=== PATIENT | male | born 1975 | race Caucasian/White ===

== ENCOUNTER 2021-12-19 21:04 | Emergency (ER) | payer MEDICAID ==
[~2021-12-19] VITALS: Ht 175.3 cm; Wt 84.0 kg
[2021-12-19] MEDS ORDERED: IPRATROPIUM BROMIDE (0.02%) 0.5MG/2.5ML NEB HHN STA (21:48)
[2021-12-19] MEDS ORDERED: PREDNISONE 20MG TABLET PO STA (21:48)
[2021-12-19] MEDS: ALBUTEROL (0.083%) 2.5MG/3ML NEB HHN SCH ×3 (22:45→23:45)
[2021-12-20 00:31] VITALS: BP 123/81
[2021-12-20] MEDS ORDERED: P50 MT ×2 (00:48→02:31)
[2021-12-20] MEDS ORDERED: ALBU6.7H9 INH ×2 (00:48→02:31)
[2021-12-20] MEDS ORDERED: ATROV INH ×2 (00:49→02:31)
[2021-12-20] MEDS ORDERED: IBUP-2028 MT ×2 (00:49→02:31)
[2021-12-20] MEDS ORDERED: TOPUD PO ×2 (00:50→02:31)
== END 2021-12-20 01:10 | disposition home or self-care (01) ==
LOC: ER 21:04
DX: R07.89 Other chest pain (principal); R06.2 Wheezing; M54.89 Other dorsalgia; Z20.822 Contact with and (suspected) exposure to COVID-19; F12.90 Cannabis use, unspecified, uncomplicated; F17.210 Nicotine dependence, cigarettes, uncomplicated; Z71.6 Tobacco abuse counseling
CPT/HCPCS: 71045; 87426; 93005; 94640; 99285; 99406; J7512; Z7610

== ENCOUNTER 2021-12-20 01:49 | Emergency (ER) | payer MEDICAID ==
[~2021-12-20] VITALS: Ht 175.3 cm; Wt 84.0 kg
[~2021-12-20 01:49] MED LIST: ALBU6.7H9 INH; ATROV INH; IBUP-2028 MT; P50 MT; TOPUD PO
[2021-12-20 02:10] VITALS: BP 138/62
[2021-12-20] MEDS ORDERED: P50 MT (02:31)
[2021-12-20] MEDS ORDERED: ALBU6.7H9 INH (02:31)
[2021-12-20] MEDS ORDERED: IBUP-2028 MT (02:31)
[2021-12-20] MEDS ORDERED: ATROV INH (02:31)
[2021-12-20] MEDS ORDERED: TOPUD PO (02:31)
== END 2021-12-20 03:00 | disposition home or self-care (01) ==
LOC: ER 01:49
DX: Z76.0 Encounter for issue of repeat prescription (principal)
CPT/HCPCS: 99283

== ENCOUNTER 2022-01-13 08:05 | Emergency (ER) | payer MEDICAID ==
[~2022-01-13] VITALS: Ht 177.8 cm; Wt 82.0 kg
[2022-01-13 08:17] VITALS: BP 155/83
[2022-01-13] MEDS ORDERED: ALBUTEROL (0.083%) 2.5MG/3ML NEB HHN STA ×3 (08:35→10:23)
[2022-01-13] MEDS ORDERED: METHYLPREDNISOLONE SOD SUCC 125 MG/2 ML VIAL IV STA (08:35)
[2022-01-13] MEDS ORDERED: IPRATROPIUM BROMIDE (0.02%) 0.5MG/2.5ML NEB HHN STA ×3 (08:35→10:23)
[2022-01-13] MEDS ORDERED: PREDNISONE 20MG TABLET PO ONE (08:45)
[2022-01-13] MEDS ORDERED: ATROV INH (11:41)
[2022-01-13] MEDS ORDERED: ALBU6.7H9 INH (11:41)
[2022-01-13] MEDS ORDERED: P50 MT (11:41)
== END 2022-01-13 11:54 | disposition home or self-care (01) ==
LOC: ER 08:05
DX: R06.02 Shortness of breath (principal); F12.10 Cannabis abuse, uncomplicated; Z79.899 Other long term (current) drug therapy
CPT/HCPCS: 71045; 94640; 99284; J7512; Z7610

== ENCOUNTER 2022-01-24 15:54 | Emergency (ER) | payer SELFPAY ==
[~2022-01-24] VITALS: Ht 177.8 cm; Wt 82.0 kg
[2022-01-24] MEDS ORDERED: IPRATROPIUM BROMIDE (0.02%) 0.5MG/2.5ML NEB HHN STA ×2 (16:48→18:50)
[2022-01-24] MEDS ORDERED: PREDNISONE 20MG TABLET PO STA (16:48)
[2022-01-24] MEDS ORDERED: ALBUTEROL (0.083%) 2.5MG/3ML NEB HHN STA ×2 (16:48→18:50)
[2022-01-24] MEDS ORDERED: ALBU6.7H15 INH (19:45)
[2022-01-24] MEDS ORDERED: P50 MT (19:45)
[2022-01-24] MEDS ORDERED: AZIT500T8 MT (19:45)
[2022-01-24 21:00] VITALS: BP 136/84
== END 2022-01-24 21:30 | disposition home or self-care (01) ==
LOC: ER 15:54
DX: J44.1 Chronic obstructive pulmonary disease with (acute) exacerbation (principal); Z72.0 Tobacco use; F12.90 Cannabis use, unspecified, uncomplicated; Z79.51 Long term (current) use of inhaled steroids; Z79.899 Other long term (current) drug therapy
CPT/HCPCS: 71045; 94640; 99285; J7512; Z7610

== ENCOUNTER 2023-01-26 21:09 | Emergency (ER) | payer MEDICAID ==
[~2023-01-26] VITALS: Ht 180.3 cm; Wt 84.0 kg
[~2023-01-26 21:09] MED LIST changes: +ALBU6.7H15 INH; +ALBU6.7H3 INH; -ALBU6.7H9 INH; +AZIT500T8 MT
[2023-01-27] MEDS ORDERED: IPRATROPIUM BROMIDE (0.02%) 0.5MG/2.5ML NEB HHN STA (00:57)
[2023-01-27] MEDS ORDERED: ACETAMINOPHEN 325MG TABLET PO STA (00:57)
[2023-01-27] MEDS ORDERED: METHYLPREDNISOLONE SOD SUCC 125 MG/2 ML VIAL IM STA (00:57)
[2023-01-27] MEDS ORDERED: ALBUTEROL (0.083%) 2.5MG/3ML NEB HHN STA (00:57)
[2023-01-27] MEDS ORDERED: MAGNESIUM/ALUMINUM HYDROXIDE/SIMETHICONE 30ML UDC PO ONE (01:00)
[2023-01-27] MEDS ORDERED: FAMOTIDINE 20MG TABLET PO ONE (01:00)
[2023-01-27] MEDS ORDERED: P50 PO (04:01)
[2023-01-27] MEDS ORDERED: ALBU18HF2 IH (04:01)
[2023-01-27] MEDS ORDERED: FAMO20TA8 MT (04:01)
[2023-01-27] MEDS ORDERED: ATROV INH (04:01)
[2023-01-27] MEDS ORDERED: DEXTL PO (04:01)
[2023-01-27] MEDS ORDERED: ACET-2708 PO (04:01)
[2023-01-27 05:45] VITALS: BP 131/68
== END 2023-01-27 05:45 | disposition home or self-care (01) ==
LOC: ER 21:09
DX: J20.9 Acute bronchitis, unspecified (principal); K29.70 Gastritis, unspecified, without bleeding; Z20.822 Contact with and (suspected) exposure to COVID-19
CPT/HCPCS: 71045; 87426; 93005; 94640; 96372; 99285; C9803; J2930; Z7610

== ENCOUNTER 2023-02-19 19:30 | Emergency (ER) | payer MEDICAID ==
[~2023-02-19] VITALS: Ht 180.3 cm; Wt 82.0 kg
[~2023-02-19 19:30] MED LIST changes: +ACET-2708 PO; +ALBU18HF2 IH; +DEXTL PO; +FAMO20TA8 MT; +P50 PO
[2023-02-19] MEDS ORDERED: IBUPROFEN 600MG TABLET PO STA (23:25)
[2023-02-19 23:32] VITALS: BP_SYST 130
[2023-02-20] MEDS ORDERED: ALBU6.7H3 INH (00:09)
== END 2023-02-20 00:30 | disposition home or self-care (01) ==
LOC: ER 19:30
DX: R05.9 Cough, unspecified (principal); R06.02 Shortness of breath; F17.200 Nicotine dependence, unspecified, uncomplicated; F12.10 Cannabis abuse, uncomplicated
CPT/HCPCS: 71045; 99283

== ENCOUNTER 2023-03-17 23:08 | Emergency (ER) | payer MEDICAID, OTHER ==
[~2023-03-17] VITALS: Ht 177.8 cm; Wt 83.0 kg
[2023-03-17 23:43] LABS: BASOPHILS % 0.4 % (0.0-2.0); EOSINOPHILS % 3.9 % (0.0-5.0); HEMATOCRIT. 45.5 % (42.0-52.0); HEMOGLOBIN. 15.6 g/dL (14.0-18.0); LYMPHOCYTES % 19.3 % (20.0-50.0); MEAN CORPUSCULAR HEMOGLOBIN 32.9 pg (28.0-32.0); MEAN CORPUSCULAR VOLUME 96.1 fL (80.0-94.0); MEAN PLATELET VOLUME 8.7 fl (7.4-10.4); MONOCYTES % 8.8 % (2.0-8.0); NEUTROPHILS % 67.6 % (40.0-76.0); PLATELET 259 x1000/uL (130-400); RED BLOOD CELL COUNT 4.74 mill/uL (4.7-6.1); RED CELL DISTRIBUTION WIDTH 13.3 % (11.6-14.6)
[2023-03-17 23:55] LABS: PROTHROMBIN TIME 10.5 sec (9.6-11.0)
[2023-03-18 01:02] LABS: CHLORIDE 105 mEq/L (98-107)
[2023-03-18] MEDS ORDERED: METHYLPREDNISOLONE SOD SUCC 125 MG/2 ML VIAL IV ONE (01:30)
[2023-03-18] MEDS ORDERED: IPRATROPIUM/ALBUTEROL 0.5-3(2.5)MG/3ML NEB HHN ONE (01:30)
[2023-03-18] MEDS ORDERED: MAGNESIUM 2 G PREMIX 50 ML IV ONE (01:30)
[2023-03-18 04:00] VITALS: BP 111/75
[2023-03-18] MEDS ORDERED: ALBU6.7H3 INH (04:26)
[2023-03-18] MEDS ORDERED: P50 MT (04:26)
== END 2023-03-18 05:13 | disposition home or self-care (01) ==
LOC: ER 23:08
DX: J45.901 Unspecified asthma with (acute) exacerbation (principal); F12.90 Cannabis use, unspecified, uncomplicated
CPT/HCPCS: 36415; 71045; 80053; 83880; 84484; 85025; 85610; 93005; 94640; 96365; 96366; 96375; 99285; J2930; J3475; Z7610